=== PATIENT | male | born 1935 | race Caucasian/White ===

== ENCOUNTER 2017-10-18 17:03 | Inpatient (IN) | payer MEDICARE, OTHER ==
[~2017-10-18] VITALS: Ht 172.7 cm; Wt 70.3 kg
[2017-10-18] MEDS ORDERED: NS IV 1000 ML 1,000 ML IV ONE ×2 (17:32→19:40)
[2017-10-18 17:58] LABS: BASOPHILS % (AUTO) 0 % (0-10); EOSINOPHILS % (AUTO) 0 % (0-10); HEMATOCRIT 39 % (40-54); HEMOGLOBIN 12.7 G/DL (13.3-17.7); LYMPHOCYTES # (AUTO) 0.6 X 10^3 (1.0-4.0); LYMPHOCYTES % (AUTO) 8 % (12-44); MEAN CORPUSCULAR HEMOGLOBIN 23 PG (25-34); MEAN CORPUSCULAR HGB CONC 33 G/DL (32-36); MEAN CORPUSCULAR VOLUME 70 FL (80-99); MEAN PLATELET VOLUME 10.9 FL (7.4-10.4); MONOCYTES # (AUTO) 0.5 X 10^3 (0.0-1.0); MONOCYTES % (AUTO) 7 % (0-12); NEUTROPHILS # (AUTO) 6.7 X 10^3 (1.8-7.8); NEUTROPHILS % (AUTO) 85 % (42-75); PLATELET COUNT 322 10^3/uL (130-400); RED BLOOD COUNT 5.52 10^6/uL (4.35-5.85); RED CELL DISTRIBUTION WIDTH 16.3 % (10.0-14.5); WHITE BLOOD COUNT 7.8 10^3/uL (4.3-11.0)
[2017-10-18 18:19] LABS: INR 1.1 (0.8-1.4); PROTHROMBIN TIME PATIENT 13.8 SEC (12.2-14.7)
--- NOTE | 2017-10-18 18:22 | Diagnostic Imaging Report ---
INDICATION: Injury from a fall. EXAMINATION: Portable chest at 6:07 p.m. FINDINGS: Heart size and pulmonary vascularity are normal. Lungs are clear. There are no effusions or pneumothoraces. IMPRESSION: Negative chest. Dictated by: Dictated on workstation # [id number]
--- NOTE | 2017-10-18 18:37 | ED General ---
General Chief Complaint: General Problems/Pain Stated Complaint: FALL Nursing Triage Note: Pt brought to ED via EMS. Pt states he has been living in his garage for 18 years while his lives in the house. Pt states he was using a bucket to have a BM and when he stood up to wipe himself he lost his balance and fell forward. Pt denies LOC or hitting head. Pt denies injuries. Pt states he was too weak to get himself up from the ground and believes he was on the ground for approximately an hour when pt was found by grandson. Pt's grandson is the one that called EMS. EMS stated pt generally visits family daily and family has not seen pt in several days. That is why the grandson went to check on the pt. Pt arrived to ED covered in feces from the bottom down both legs. Nursing Sepsis Screen: No Definite Risk Source of Information: Patient, EMS Exam Limitations: No Limitations History of Present Illness Date Seen by Provider: Oct 18, 2017 Time Seen by Provider: 17:04 Initial Comments This 82-year-old gentleman presents to the emergency room via EMS from his home where he fell and was unable to get up. Patient has lived in his garage building for many years. This is an arrangement he and his have to keep peace in the household as he describes it. He was found in the garage on the floor by family when they did not hear from him today. He believes he laid on the ground for at least an hour. He has chronic problems with frequent stools and diarrhea. He was sitting on the stool and bent over to wipe himself when he fell over. He denies any injury or pain. He has generalized achiness. He was found to be febrile but he denies any symptoms of sickness such as cough, vomiting, etc. His stooling problems are at baseline. Patient presumes that he has cancer but does not want to pursue workup for it. He denies any blood in his stools. He denies any known diagnosed health problems and takes no medications. He denies excessive heat in the garage. He states there is good air circulation and he does not like air-conditioning. He has no primary care provider. Allergies and Home Medications Allergies Coded Allergies: No Known Drug Allergies (Unverified , 10/18/17) Patient Home Medication List Home Medication List Reviewed: Yes Review of Systems Review of Systems Constitutional: see HPI EENTM: no symptoms reported Respiratory: no symptoms reported Cardiovascular: see HPI (tachycardia) Gastrointestinal: see HPI (chronic diarrhea) Genitourinary: no symptoms reported Musculoskeletal: see HPI Skin: other (numerous areas of erythema from lying on the hard floor. Small skin tear on the left elbow) Psychiatric/Neurological: See HPI Hematologic/Lymphatic: No Symptoms Reported Immunological/Allergic: no symptoms reported Past Cjcidfn-Bsfibs-Qdewpa Hx Past Med/Social Hx: Reviewed and Corrections made Patient Social History Alcohol Use: Denies Use Recreational Drug Use: No 2nd Hand Smoke Exposure: No Recent Foreign Travel: No Contact w/Someone Who Travel: No Recent Infectious Disease Expo: No Recent Hopitalizations: No Physical Abuse: No Sexual Abuse: No Seasonal Allergies Seasonal Allergies: No Past Medical History Surgeries: No Respiratory: No Cardiac: No Neurological: No Genitourinary: No Gastrointestinal: Yes Chronic Diarrhea, Irritable Bowel Musculoskeletal: No Endocrine: No HEENT: No Cancer: Yes Skin Did You Recieve Any Treatments: Yes What Type of Treatment Did You: Radiation Psychosocial: No Nursing Suicide Risk Score: 0 Integumentary: No Blood Disorders: No Adverse Reaction/Blood Tranf: No Physical Exam-Suspected Sepsis Physical Exam Vital Signs Vital Signs - First Documented 10/18/17 17:05 Temp 100.3 Pulse 117 Resp 16 B/P (MAP) 134/86 (102) Pulse Ox 94 O2 Delivery Room Air Capillary Refill : Greater Than 3 Seconds Blood Pressure Mean: 102 Height, Weight, BMI Height: 5'8.00" Weight: 155lbs. oz. 70.033025vn; BMI Method:Stated General Appearance: No Apparent Distress, WD/WN, Thin, Other (skin soiled, some with feces) HEENT: PERRL/EOMI, Other (twitching and dryness of the right eye. 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 Oropharynx somewhat dry) Neck: Normal Inspection Respiratory: Lungs Clear, Normal Breath Sounds, No Accessory Muscle Use, No Respiratory Distress Cardiovascular: No Edema, No Murmur, Tachycardia Gastrointestinal: Normal Bowel Sounds, Non Tender, Soft Extremity: Normal Capillary Refill, Non Tender, No Pedal Edema, Other ( erythema over the knees) Neurologic/Psychiatric: Alert, Oriented x3, No Motor/Sensory Deficits, Normal Mood/Affect, turf manager II-XII Norm as Tested Skin: warm/dry, other (erythema over the knees, shoulders, anterior chest, and sacrum from lying on a hard floor) Focused Exam Lactate Level 10/18/17 18:13: Lactic Acid Level 2.24*H Lactic Acid Level Laboratory Tests Test 10/18/17 18:13 Lactic Acid Level 2.24 MMOL/L (0.50-2.00) *H Progress/Results/Core Measures Suspected Sepsis Recent Fever Within 48 Hours: No Infection Criteria Present: None New/Unexplained Altered Menta: No Sepsis Screen: No Definite Risk SIRS Temperature:100.3 Pulse: 117 Respiratory Rate: 16 Laboratory Tests 10/18/17 17:43: White Blood Count 7.8 Blood Pressure 134 /86 Mean: 102 10/18/17 18:13: Lactic Acid Level 2.24*H Laboratory Tests 10/18/17 17:35: INR Comment 1.1 10/18/17 17:43: Creatinine 1.10, Platelet Count 322, Total Bilirubin 0.9 Results/Orders Lab Results Laboratory Tests Test 10/18/17 17:35 10/18/17 17:43 10/18/17 18:13 10/18/17 18:59 Range/Units Prothrombin Time 13.8 12.2-14.7 SEC INR Comment 1.1 0.8-1.4 Activated Partial Thromboplast Time 32 24-35 SEC White Blood Count 7.8 4.3-11.0 10^3/uL Red Blood Count 5.52 4.35-5.85 10^6/uL Hemoglobin 12.7 L 13.3-17.7 G/DL Hematocrit 39 L 40-54 % Mean Corpuscular Volume 70 L 80-99 FL Mean Corpuscular Hemoglobin 23 L 25-34 PG Mean Corpuscular Hemoglobin Concent 33 32-36 G/DL Red Cell Distribution Width 16.3 H 10.0-14.5 % Platelet Count 322 130-400 10^3/uL Mean Platelet Volume 10.9 H 7.4-10.4 FL Neutrophils (%) (Auto) 85 H 42-75 % Lymphocytes (%) (Auto) 8 L 12-44 % Monocytes (%) (Auto) 7 0-12 % Eosinophils (%) (Auto) 0 0-10 % Basophils (%) (Auto) 0 0-10 % Neutrophils # (Auto) 6.7 1.8-7.8 X 10^3 Lymphocytes # (Auto) 0.6 L 1.0-4.0 X 10^3 Monocytes # (Auto) 0.5 0.0-1.0 X 10^3 Eosinophils # (Auto) 0.0 0.0-0.3 10^3/uL Basophils # (Auto) 0.0 0.0-0.1 10^3/uL Neutrophils % (Manual) 87 % Lymphocytes % (Manual) 5 % Monocytes % (Manual) 0 % Eosinophils % (Manual) 0 % Basophils % (Manual) 0 % Metamyelocytes % 1 % Band Neutrophils 7 % Blood Morphology Comment NORMAL Sodium Level 129 L 135-145 MMOL/L Potassium Level 4.2 3.6-5.0 MMOL/L Chloride Level 98 98-107 MMOL/L Carbon Dioxide Level 22 21-32 MMOL/L Anion Gap 9 5-14 MMOL/L Blood Urea Nitrogen 15 7-18 MG/DL Creatinine 1.10 0.60-1.30 MG/DL Estimat Glomerular Filtration Rate > 60 BUN/Creatinine Ratio 14 Glucose Level 100 70-105 MG/DL Calcium Level 9.2 8.5-10.1 MG/DL Corrected Calcium 9.4 8.5-10.1 MG/DL Magnesium Level 2.0 1.8-2.4 MG/DL Total Bilirubin 0.9 0.1-1.0 MG/DL Aspartate Amino Transf (AST/SGOT) 81 H 5-34 U/L Alanine Aminotransferase (ALT/SGPT) 38 0-55 U/L Alkaline Phosphatase 248 H 40-136 U/L Total Creatine Kinase 1118 H 30-200 U/L Total Protein 7.0 6.4-8.2 GM/DL Albumin 3.7 3.2-4.5 GM/DL TSH [place] Testing 3.93 0.35-4.94 UIU/ML Serum Alcohol < 10 <10 MG/DL Lactic Acid Level 2.24 *H 0.50-2.00 MMOL/L Urine Color YELLOW Urine Clarity SLIGHTLY CLOUDY Urine pH 5 5-9 Urine Specific [place] 1.025 H 1.016-1.022 Urine Protein 2+ H NEGATIVE Urine Glucose (UA) NEGATIVE NEGATIVE Urine Ketones 1+ H NEGATIVE Urine Nitrite NEGATIVE NEGATIVE Urine Bilirubin NEGATIVE NEGATIVE Urine Urobilinogen NORMAL NORMAL MG/DL Urine Leukocyte Esterase 1+ H NEGATIVE Urine RBC (Auto) 5+ H NEGATIVE Urine RBC 10-25 H /HPF Urine WBC 5-10 H /HPF Urine Crystals PRESENT H /LPF Urine Amorphous Sediment FEW TERI URATES H /LPF Urine Bacteria FEW H /HPF Urine Casts NONE /LPF Urine Mucus SMALL H /LPF Urine Culture Indicated YES My Orders Orders - CALEB BUCKNER MD Alcohol (10/18/17 17:14) Cbc With Automated Diff (10/18/17 17:14) Comprehensive Metabolic Panel (10/18/17 17:14) Creatine Kinase (10/18/17 17:14) Magnesium (10/18/17 17:14) Thyroid Analyzer (10/18/17 17:14) Ekg Tracing (10/18/17 17:31) Monitor-Rhythm Ecg Trace Only (10/18/17 17:31) Saline Lock/Iv-Start (10/18/17 17:32) Ns Iv 1000 Ml (Sodium Chloride 0.9%) (10/18/17 17:32) Blood Culture (10/18/17 18:01) Sputum Culture (10/18/17 18:01) Urinalysis (10/18/17 18:01) Protime With Inr (10/18/17 18:) Partial Thromboplastin Time (10/18/17 18:01) Chest 1 View, Ap/Pa Only (10/18/17 18:01) Vital Signs Adult Sepsis Patie Q15M (10/18/17 18:01) O2 (10/18/17 18:01) Remove Rings In Anticipation O (10/18/17 18:01) Lactic Acid Analyzer (10/18/17 18:01) Manual Differential (10/18/17 17:43) Acetaminophen Tablet (Tylenol Tablet) (10/18/17 18:45) Urine Culture (10/18/17 18:59) Ceftriaxone For Iv Use (Rocephin For I (10/18/17 19:30) Medications Given in ED Current Medications Medications Dose Ordered Sig/Malu Route Start Time Stop Time Status Last Admin Dose Admin Acetaminophen 1,000 mg ONCE ONCE PO 10/18/17 18:45 10/18/17 18:46 DC 10/18/17 18:45 1,000 MG Ceftriaxone Sodium 1000 mg/ Sodium Chloride 50 ml @ 100 mls/hr ONCE ONCE IV 10/18/17 19:30 10/18/17 19:59 10/18/17 19:29 100 MLS/HR Sodium Chloride 1,000 ml @ 0 mls/hr Q0M ONCE IV 10/18/17 17:32 10/18/17 17:35 DC 10/18/17 17:47 1,000 MLS/HR Vital Signs/I&O 10/18/17 17:05 Temp 100.3 Pulse 117 Resp 16 B/P (MAP) 134/86 (102) Pulse Ox 94 O2 Delivery Room Air Capillary Refill : Greater Than 3 Seconds Blood Pressure Mean: 102 Progress Note : Time: 19:45 Progress Note Patient was hydrated and given Tylenol for fever. He was found to have rhabdomyolysis and urinary tract infection. He technically meets criteria for sepsis. Septic workup was pursued. He received a total of 2 L of normal saline and IV boluses in the ER. Family eventually arrived. They state he splits his time between family in [place] and his home in [place]. Patient confirms that he does stay and sleep in his garage when he is in [place]. His grandchildren who are present in the room now wish for him to find a different living arrangements, possibly to live full-time with his daughter in [place]. I did discuss CODE STATUS with patient and the grandchildren. Patient wishes to be full code for now until he can discuss further with his other family members who are on their way. Patient was given a Boostrix tetanus booster because of a small skin tear on the left elbow. Patient had no significant injuries and did not require trauma consultation. ECG Initial ECG Impression Date: Oct 18, 2017 Initial ECG Impression Time: 17:32 Initial ECG Rate: 120 Initial ECG Rhythm: S.Tach Comment Sinus tachycardia with no ST elevation or depression. Multiple PVCs. Borderline right axis deviation. Diagnostic Imaging Diagonstic Imaging: Xray Plain Films/CT/US/NM/MRI: chest Comments Chest x-ray viewed by me and report reviewed. See report below: NAME: SANYA COATS [employer] REC#: [id number] PT STATUS: REG ER : 1935 PHYSICIAN: CALEB BUCKNER MD ADMIT DATE: 10/18/17/ER Draft Date of Exam:10/18/17 CHEST 1 VIEW, AP/PA ONLY INDICATION: Injury from a fall. EXAMINATION: Portable chest at 6:07 p.m. FINDINGS: Heart size and pulmonary vascularity are normal. Lungs are clear. There are no effusions or pneumothoraces. IMPRESSION: Negative chest. Dictated on workstation # [id number] Dict: 10/18/17 1817 Trans: 10/18/17 1822 [facility] [id number] Interpreted by: RENALDO LIU MD Departure Communication (Admissions) Time/Spoke to Admitting Phy: 19:40 Dr. Rao Impression Primary Impression: Sepsis Qualified Codes: A41.9 - Sepsis, unspecified organism Additional Impressions: Urinary tract infection Qualified Codes: N39.0 - Urinary tract infection, site not specified Rhabdomyolysis Qualified Codes: T79.6XXA - Traumatic ischemia of muscle, initial encounter Chronic diarrhea Fall on same level Qualified Codes: W18.30XA - Fall on same level, unspecified, initial encounter Skin tear of elbow without complication Qualified Codes: S51.012A - Laceration without foreign body of left elbow, initial encounter Hyponatremia Disposition: ADMITTED INPATIENT Condition: Improved Admissions Decision to Admit Reason: Admit from ER (General) Decision to Admit/Date: Oct 18, 2017 Time/Decision to Admit Time: 19:15 Departure-Patient Inst. Referrals: JAKE SIMS MD (PCP/Family) Primary Care Physician CALEB BUCKNER MD Oct 18, 2017 18:37
[2017-10-18 18:39] LABS: ALANINE AMINOTRANSFERASE 38 U/L (0-55); ALBUMIN 3.7 GM/DL (3.2-4.5); ALKALINE PHOSPHATASE 248 U/L (40-136); BILIRUBIN,TOTAL 0.9 MG/DL (0.1-1.0); BUN/CREATININE RATIO 14; CALCIUM 9.2 MG/DL (8.5-10.1); CARBON DIOXIDE 22 MMOL/L (21-32); CHLORIDE 98 MMOL/L (98-107); CREATINE KINASE 1118 U/L (30-200); GFR ESTIMATED > 60; GLUCOSE 100 MG/DL (70-105); POTASSIUM 4.2 MMOL/L (3.6-5.0); SODIUM 129 MMOL/L (135-145)
[2017-10-18 18:43] LABS: BAND NEUTROPHILS 7 %; BASOPHILS % (MANUAL) 0 %; EOSINOPHILS % (MANUAL) 0 %; LYMPHOCYTES % (MANUAL) 5 %; METAMYELOCYTES % 1 %; MONOCYTES % (MANUAL) 0 %; NEUTROPHILS % (MANUAL) 87 %; RBC MORPH NORMAL
[2017-10-18] MEDS ORDERED: ACETAMINOPHEN 500 MG TAB (TYLENOL) PO ONE (18:45)
[2017-10-18 19:01] LABS: TSH (THYROID ANALYZER) 3.93 UIU/ML (0.35-4.94)
[2017-10-18 19:07] LABS: BILIRUBIN,URINE NEGATIVE (NEGATIVE); CLARITY,URINE SLIGHTLY CLOUDY; COLOR,URINE YELLOW; GLUCOSE, URINE (UA) NEGATIVE (NEGATIVE); KETONES,URINE 1+ (NEGATIVE); LEUKOCYTE ESTERASE ,URINE 1+ (NEGATIVE); NITRITE,URINE NEGATIVE (NEGATIVE); PH,URINE 5 (5-9); PROTEIN,URINE 2+ (NEGATIVE); UROBILINOGEN,URINE NORMAL (NORMAL)
[2017-10-18 19:19] LABS: AMORPHOUS SEDIMENT,UR FEW AMOR URATES /LPF; BACTERIA,URINE FEW /HPF
[2017-10-18] MEDS ORDERED: cefTRIAXone FOR IV USE 1,000 MG in NS (IVPB) 50 ML IV ONE (19:30)
[2017-10-18] MEDS ORDERED: TETANUS,DIPTH,PERTUSS P/F (BOOSTRIX) 0.5 ML VIAL IM ONE (19:45)
[2017-10-18 21:00] VITALS: BP 134/64
[2017-10-18] MEDS ORDERED: ACETAMINOPHEN 500 MG TAB (TYLENOL) PO PRN (22:00)
[2017-10-18] MEDS ORDERED: ONDANSETRON 4 MG/2 ML (SDV) Z0FRAN IV PRN (22:00)
[2017-10-18] MEDS ORDERED: fentaNYL INJECTION 100 MCG/2 ML AMP IV PRN (22:00)
[2017-10-18 22:05] VITALS: BP 112/65
[2017-10-18] MEDS: NS IV 1000 ML 1,000 ML IV SCH (22:52)
[2017-10-18 23:05] VITALS: BP 112/65
[2017-10-19 00:25] VITALS: BP 121/70
[2017-10-19 04:30] VITALS: BP 118/65
--- OUTSIDE RECORDS SUMMARY | 2017-10-19 05:41 | XMS REPORT | Continuity of Care Document ---
Author Author [facility] Organization [facility] Address Unknown Phone Unavailable Allergies There is no data. Medications There is no data. 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 Results There is no data. Encounters ACCT No. Visit Date/Time Discharge Status Pt. Type Provider Facility Loc./Unit Complaint [id number] 05/29/2015 09:18:00 05/29/2015 23:59:59 CLS Outpatient DAV MICHAEL MD [facility] ONC [id number] 10/15/2014 09:32:00 11/19/2014 00:01:00 DIS Outpatient DAV MICHAEL MD [facility] ONC [id number] 11/26/2014 09:30:00 Document Registration
[2017-10-19 05:49] LABS: BASOPHILS % (AUTO) 1 % (0-10); EOSINOPHILS % (AUTO) 0 % (0-10); HEMATOCRIT 34 % (40-54); HEMOGLOBIN 11.1 G/DL (13.3-17.7); LYMPHOCYTES # (AUTO) 1.2 X 10^3 (1.0-4.0); LYMPHOCYTES % (AUTO) 19 % (12-44); MEAN CORPUSCULAR HEMOGLOBIN 23 PG (25-34); MEAN CORPUSCULAR HGB CONC 33 G/DL (32-36); MEAN CORPUSCULAR VOLUME 71 FL (80-99); MEAN PLATELET VOLUME 10.8 FL (7.4-10.4); MONOCYTES # (AUTO) 0.9 X 10^3 (0.0-1.0); MONOCYTES % (AUTO) 13 % (0-12); NEUTROPHILS # (AUTO) 4.5 X 10^3 (1.8-7.8); NEUTROPHILS % (AUTO) 68 % (42-75); PLATELET COUNT 260 10^3/uL (130-400); RED BLOOD COUNT 4.77 10^6/uL (4.35-5.85); WHITE BLOOD COUNT 6.6 10^3/uL (4.3-11.0)
[2017-10-19] MEDS: NS IV 1000 ML 1,000 ML IV SCH ×4 (05:52→20:01)
[2017-10-19 06:24] LABS: ALANINE AMINOTRANSFERASE 67 U/L (0-55); ALBUMIN 2.9 GM/DL (3.2-4.5); ALKALINE PHOSPHATASE 187 U/L (40-136); BILIRUBIN,TOTAL 0.6 MG/DL (0.1-1.0); BUN/CREATININE RATIO 14; CALCIUM 8.1 MG/DL (8.5-10.1); CARBON DIOXIDE 19 MMOL/L (21-32); CHLORIDE 109 MMOL/L (98-107); CREATINE KINASE 5243 U/L (30-200); CREATININE SERUM 0.83 MG/DL (0.60-1.30); GFR ESTIMATED > 60; GLUCOSE 92 MG/DL (70-105); POTASSIUM 3.8 MMOL/L (3.6-5.0); SODIUM 137 MMOL/L (135-145); TOTAL PROTEIN 5.4 GM/DL (6.4-8.2)
--- NOTE | 2017-10-19 08:19 | History & Physical-Hospitalist ---
KENNETH SCHAEFER MED STUDENT 10/19/17 0819: History of Present Illness HPI/Chief Complaint CC: Sepsis, chronic diarrhea, rhabdomyolysis HPI: This is a 82YO WM who presented to the ER after falling in his garage and was unable to get up. History was obtained via patient's daughter because the patient's hearing aids fell out when he fell yesterday. The daughter reports that the patient tends to spend time in his "man cave" in the garage, but sometimes isn't able to make it to the bathroom in the house in time. He had a BM in a bucket and fell. His grandson found him down after approx. 1 hour. Denies any loss of consciousness or blow to the head. Daughter reports that he has chronic diarrhea for a number of years. Denies having any recent illness. No current known medical conditions- patient hasn't been to a doctor in 25+ years. Labs obtained in the ER showed elevated lactic acid 2.24, hyponatremia, and rhabdomyolysis (CK 1118). CXR negative. UA was positive for UTI- ceftriaxone initiated. Source: patient, family, old records Date Seen 10/19/17 Attending Physician Kade Vaca MD PCP Kade Vaca MD Referring Physician Date of Admission Oct 18, 2017 at 19:49 Home Medications & Allergies Home Medications Reviewed patient Home Medication Reconciliation performed by pharmacy medication reconciliations a and p technician and/or nursing. Patients Allergies have been reviewed. Allergies Allergies Coded Allergies No Known Drug Allergies (Unverified10/19/17) Past Yuocrej-Owjzof-Rvpqld Hx Past Med/Social Hx: Reviewed and Corrections made Patient Social History Alcohol Use: Past History (history of alcoholism- sober for 20 years) Recreational Drug Use: No Smoking Status: Former Smoker 2nd Hand Smoke Exposure: No Physical Abuse Screen: No Sexual Abuse: No Recent Foreign Travel: No Contact w/other who traveled: No Recent Hopitalizations: No Recent Infectious Disease Expo: No Seasonal Allergies Seasonal Allergies: No Past Medical History Gastrointestinal: Chronic Diarrhea, Irritable Bowel Cancer: Skin Did You Recieve Any Treatments: Yes What Type of Treatment Did You: Radiation History of Blood Disorders: No Adverse Reaction to Blood Lira: No Family History Colon cancer G8 BROTHER Myocardial infarction 19 FATHER Physical Exam Physical Exam Vital Signs Vital Signs - First Documented 10/18/17 17:05 Temp 100.3 Pulse 117 Resp 16 B/P (MAP) 134/86 (102) Pulse Ox 94 O2 Delivery Room Air Capillary Refill : Greater Than 3 Seconds Height, Weight, BMI Height: 5'8.00" Weight: 155lbs. oz. 70.033469vz; BMI Method:Stated Results Results/Procedures Labs Laboratory Tests 10/18/17 17:43 10/19/17 05:11 10/19/17 05:33 Patient resulted labs reviewed. Assessment/Plan Admission Diagnosis Sepsis Rhabdomyolysis Chronic diarrhea UTI Plan: PT evaluation IVF Ceftriaxone Monitor labs Assessment and Plan Rhabdomyolysis Sepsis Chronic diarrhea UTI Plan: Continue abx IVF per sepsis protocol Bowel regimen Clinical Quality Measures DVT/VTE Risk/Contraindication: Risk Factor Score Per Nursin RFS Level Per Nursing on Admit: 4+=Very High TYLOR LAMBERT DO 10/19/17 1641: History of Present Illness HPI/Chief Complaint Patient reports that he "can do my own PT" and there is really nothing wrong with him. Told RN he has prostate cancer but I am unclear how he became aware of that issue considering he has not seen a doctor in 25 years. Checked meds and labs and he is currently improved in meds and fluids. Source: patient, family, old records Exam Limitations: no limitations Time Seen by Provider: 10:00 Home Medications & Allergies Home Medications Reviewed Past Khhokvc-Kgbvqk-Iswema Hx Past Med/Social Hx: Reviewed Nursing Past Med/Soc Hx, Reviewed and Corrections made Patient Social History Marrital Status: Employed/Student: retired ([employer]) Alcohol Use: Past History (history of alcoholism- sober for 20 years) Smoking Status: Former Smoker Past Medical History Gastrointestinal: Chronic Diarrhea, Irritable Bowel Cancer: Skin Family History Colon cancer G8 BROTHER Myocardial infarction 19 FATHER Hypertension Review of Systems Constitutional: no symptoms reported, dizziness, weakness EENTM: no symptoms reported Respiratory: no symptoms reported Cardiovascular: no symptoms reported Gastrointestinal: diarrhea Genitourinary: no symptoms reported Musculoskeletal: no symptoms reported Skin: no symptoms reported Psychiatric/Neurological: No Symptoms Reported All Other Systems Reviewed Negative Unless Noted: Yes Physical Exam Physical Exam General Appearance: No Apparent Distress, WD/WN, Chronically ill, Thin Eyes: Bilateral Eye Normal Inspection, Bilateral Eye PERRL HEENT: PERRL/EOMI, TMs Normal, Normal ENT Inspection, Pharynx Normal Neck: Full Range of Motion, Normal Inspection, Non Tender, Supple, Carotid Bruit Respiratory: Chest Non Tender, Lungs Clear, Normal Breath Sounds, No Accessory Muscle Use, No Respiratory Distress Cardiovascular: Regular Rate, Rhythm, No Edema, No Gallop, No JVD, No Murmur, Normal Peripheral Pulses Gastrointestinal: Normal Bowel Sounds, No Organomegaly, No Pulsatile Mass, Non Tender, Soft Back: Normal Inspection, No CVA Tenderness, No Vertebral Tenderness Extremity: Normal Capillary Refill, Normal Inspection, Normal Range of Motion, Non Tender, No Calf Tenderness, No Pedal Edema Neurologic/Psychiatric: Alert, Oriented x3, No Motor/Sensory Deficits, Normal Mood/Affect Skin: Normal Color, Warm/Dry Lymphatic: No Adenopathy Assessment/Plan Admission Diagnosis Acute Rhabdo Chronic diarrhea Admission Status: Inpatient Order (span 2 midnights) Reason for Inpatient Admission: Will take at least 2 days to clear rhabdomyolysis Assessment and Plan IVF Check labs in am Diagnosis/Problems Diagnosis/Problems (1) Sepsis Status: Acute Qualifiers: Sepsis type: sepsis due to unspecified organism Qualified Codes: A41.9 - Sepsis, unspecified organism (2) Fall on same level Status: Acute Qualifiers: Encounter type: initial encounter Qualified Codes: W18.30XA - Fall on same level, unspecified, initial encounter (3) Rhabdomyolysis Status: Acute Qualifiers: Rhabdomyolysis type: traumatic Encounter type: initial encounter Qualified Codes: T79.6XXA - Traumatic ischemia of muscle, initial encounter (4) Hyponatremia Status: Acute (5) Urinary tract infection Status: Acute Qualifiers: Urinary tract infection type: site unspecified Hematuria presence: without hematuria Qualified Codes: N39.0 - Urinary tract infection, site not specified KENNETH SCHAEFER STUDENT Oct 19, 2017 08:19 TYLOR LAMBERT DO Oct 19, 2017 16:41
[2017-10-19 08:48] VITALS: BP 137/72
[2017-10-19] MEDS ORDERED: LOPERAMIDE 2 MG (IMODIUM) CAP PO PRN (11:30)
[2017-10-19 12:00] VITALS: BP 144/79
--- NOTE | 2017-10-19 14:19 | Physical Therapy Evaluation ---
PT Evaluation-General Medical Diagnosis Admission Date Oct 18, 2017 at 19:49 Medical Diagnosis: sepsis/UTI/rhabdo Onset Date: Oct 18, 2017 Therapy Diagnosis Therapy Diagnosis: generalized weakness/debility Height/Weight Height (Feet): 5 Height (Inches): 8.00 Weight (Pounds): 155 Precautions Precautions/Isolations: Fall Prevention, Standard Precautions Weight Bear Status Right Lower Extremity: Right Full Weight Bearing Left Lower Extremity: Left Full Weight Bearing Referral Physician: Maira Reason for Referral: Evaluation/Treatment Medical History Additional Medical History has no seen a physician in over 25 yrs Current History EMS secondary to fall (patient lives in a garage and has BM's in a bucket. Fell bending over to wipe after a BM.) Reviewed History: Yes Social History Current Living Status: Alone Prior/Core FIM Prior Level of Function Functional [place] Measure 0=Not Assessed/NA 4=Minimal Assistance 1=Total Assistance 5=Supervision or Setup 2=Maximal Assistance 6=Modified [place] 3=Moderate Assistance 7=Complete [place] Bed Mobility: 6 Transfers (B,C,W/C) (FIM): 6 Gait: 6 patient reports he has a cane and 4WW PT Evaluation-Current Subjective Patient agrees to PT. Pain Numeric Pain Scale: 0-No Pain Location: No Pain Reported Objective Patient Orientation: Normal For Age Problem Solving: Fair Attachments: IV ROM/Strength ROM Lower Extremities bilateral LE WNL Strength Lower Extremities 4-/5 grossly bilaterally Integumentary/Posture Integumentary refer to nursing notes Bowel Incontinence: No Bladder Incontinence: No Posture WFL Neuromuscular (Tone, Coordination, Reflexes) diminished coordination/ataxic Sensory Vision: Wears Glasses Hearing: Impaired Sensation Right Lower Extremit: Intact Sensation Left Lower Extremity: Intact Transfers Functional [place] Measure 0=Not Assessed/NA 4=Minimal Assistance 1=Total Assistance 5=Supervision or Setup 2=Maximal Assistance 6=Modified [place] 3=Moderate Assistance 7=Complete [place] Transfers (B, C, W/C) (FIM): 5 Scootin Rollin Supine to/from Sit: 5 Sit to/from Stand: 5 Gait Mode of Locomotion: Walk Anticipated Mode of Locomotion: Walk Gait (FIM): 5 Distance (FIM): 3=150 ft Distance: 675' Gait Level of Assist: 5 Gait Assistive Device: FWW Comments/Gait Description slightly unsteady with self correction Balance Sitting Static: Normal Sitting Dynamic: Normal Standing Static: Fair Standing Dynamic: Fair Assessment/Needs 82 y.o. male, will benefit from skilled PT to address functional strength and mobility to improve current LOF and to safely dismiss to daughter's home for continued care. From a PT standpoint, patient would benefit from outpatient PT , upon dismissal, to continue addressing functional mobility/strength. Rehab Potential: Fair PT Short Term Goals Short Term Goals Time Frame: Oct 25, 2017 Transfers (B,C,W/C) (FIM): 6 Gait (FIM): 6 Distance (FIM): 3=150 ft Gait Level of Assist: 6 Gait Assistive Device: FWW PT Plan Treatment/Plan Treatment Plan: Continue Plan of Care Treatment Plan: Education, Functional Activity Jorge Luis, Functional Strength, Gait , Safety, Therapeutic Exercise, Transfers Treatment Duration: Oct 25, 2017 Frequency: 6 times per week Estimated Hrs Per Day: .25 hour per day Patient and/or Family Agrees t: Yes Safety Risks/Education Patient Education: Safety Issues Teaching Recipient: Patient Teaching Methods: Discussion Response to Teaching: Verbalize Understanding Discharge Recommendations Therapy D/C Recommendations: Home w/ Family Support, Physical Therapy Outpatient Equpiment Recommendations-D/C: Front Wheeled Walker Time/GCodes Time In: 1250 Time Out: 1325 Total Billed Treatment Time: 35 Total Billed Treatment 1 visit EVModC 20 min FA 15 min G Codes Necessary: CATY Spencer PT Oct 19, 2017 14:19
[2017-10-19 16:20] VITALS: BP 143/80
[2017-10-19 20:20] VITALS: BP 129/70
[2017-10-19] MEDS ORDERED: cefTRIAXone 1 GM/NS 50 ML IVPB IV SCH ×2 (22:00)
[2017-10-20] VITALS: BP 135/69
[2017-10-20] MEDS: NS IV 1000 ML 1,000 ML IV SCH (03:20)
[2017-10-20 04:24] VITALS: BP 122/64
[2017-10-20 06:06] LABS: BASOPHILS % (AUTO) 0 % (0-10); EOSINOPHILS # (AUTO) 0.2 10^3/uL (0.0-0.3); EOSINOPHILS % (AUTO) 2 % (0-10); HEMATOCRIT 34 % (40-54); HEMOGLOBIN 10.7 G/DL (13.3-17.7); LYMPHOCYTES # (AUTO) 1.5 X 10^3 (1.0-4.0); LYMPHOCYTES % (AUTO) 20 % (12-44); MEAN CORPUSCULAR HEMOGLOBIN 23 PG (25-34); MEAN CORPUSCULAR HGB CONC 32 G/DL (32-36); MEAN CORPUSCULAR VOLUME 72 FL (80-99); MEAN PLATELET VOLUME 10.7 FL (7.4-10.4); MONOCYTES % (AUTO) 13 % (0-12); NEUTROPHILS % (AUTO) 65 % (42-75); PLATELET COUNT 268 10^3/uL (130-400); RED BLOOD COUNT 4.71 10^6/uL (4.35-5.85); RED CELL DISTRIBUTION WIDTH 16.5 % (10.0-14.5); WHITE BLOOD COUNT 7.7 10^3/uL (4.3-11.0)
[2017-10-20 06:27] LABS: ALANINE AMINOTRANSFERASE 83 U/L (0-55); ALBUMIN 2.7 GM/DL (3.2-4.5); ALKALINE PHOSPHATASE 168 U/L (40-136); BILIRUBIN,TOTAL 0.4 MG/DL (0.1-1.0); BUN/CREATININE RATIO 10; CALCIUM 7.9 MG/DL (8.5-10.1); CARBON DIOXIDE 19 MMOL/L (21-32); CHLORIDE 110 MMOL/L (98-107); CREATINE KINASE 3405 U/L (30-200); CREATININE SERUM 0.81 MG/DL (0.60-1.30); GFR ESTIMATED > 60; GLUCOSE 82 MG/DL (70-105); POTASSIUM 3.4 MMOL/L (3.6-5.0); SODIUM 136 MMOL/L (135-145); TOTAL PROTEIN 5.3 GM/DL (6.4-8.2)
--- NOTE | 2017-10-20 08:10 | Progress Note-Hospitalist ---
KENNETH SCHAEFER MED STUDENT 10/20/17 0810: Subjective HPI/CC On Admission Date Seen by Provider: Oct 20, 2017 Time Seen by Provider: 07:40 Patient reports that he "can do my own PT" and there is really nothing wrong with him. Told RN he has prostate cancer but I am unclear how he became aware of that issue considering he has not seen a doctor in 25 years. Checked meds and labs and he is currently improved in meds and fluids. Subjective/Events-last exam No acute events overnight; vitals stable Pt awake and anxious to get home Denies any pain +BM, urinating okay CK improving - 3,405 Pt declined PT yesterday, but has been ambulating Reviewed meds/labs Focused Exam Lactate Level 10/18/17 18:13: Lactic Acid Level 2.24*H 10/18/17 20:35: Lactic Acid Level 1.02 Objective Exam Vital Signs Vital Signs Date Time Temp Pulse Resp B/P (MAP) Pulse Ox O2 Delivery O2 Flow Rate FiO2 10/20/17 04:24 98.3 71 16 122/64 (83) 94 Room Air Capillary Refill : Greater Than 3 Seconds General Appearance: No Apparent Distress Respiratory: Lungs Clear Cardiovascular: Regular Rate, Rhythm Neurologic/Psychiatric: Alert, Oriented x3 Results/Procedures Lab Laboratory Tests 10/20/17 05:15 Patient resulted labs reviewed. Assessment/Plan Assessment and Plan Assess & Plan/Chief Complaint Rhabdomyolysis Chronic diarrhea Plan: D/C home with daughter Diagnosis/Problems Diagnosis/Problems (1) Rhabdomyolysis Status: Acute Qualifiers: Rhabdomyolysis type: traumatic Encounter type: initial encounter Qualified Codes: T79.6XXA - Traumatic ischemia of muscle, initial encounter (2) Chronic diarrhea Status: Acute Clinical Quality Measures DVT/VTE Risk/Contraindication: Risk Factor Score Per Nursin RFS Level Per Nursing on Admit: 4+=Very High TYLOR LAMBERT DO 10/20/17 0954: Subjective Subjective/Events-last exam See DC note Objective Exam General Appearance: No Apparent Distress, WD/WN, Chronically ill, Thin Respiratory: Chest Non Tender, Lungs Clear, Normal Breath Sounds, No Accessory Muscle Use, No Respiratory Distress Assessment/Plan Assessment and Plan Assess & Plan/Chief Complaint See DC note KENNETH SCHAEFER MED STUDENT Oct 20, 2017 08:10 TYLOR LAMBERT DO Oct 20, 2017 09:54
[2017-10-20 08:20] VITALS: BP 133/69
--- NOTE | 2017-10-20 09:57 | Discharge Summary-Hospitalist ---
Diagnosis/Chief Complaint Date of Admission Oct 18, 2017 at 19:49 Date of Discharge Discharge Date: Oct 20, 2017 Admission Diagnosis Acute Rhabdo Chronic diarrhea Discharge Diagnosis (1) Rhabdomyolysis Status: Acute (2) Chronic diarrhea Status: Acute Discharge Summary Discharge Physical Exam Allergies: Coded Allergies: No Known Drug Allergies (Unverified , 10/19/17) Vitals & I&Os Vital Signs Date Time Temp Pulse Resp B/P (MAP) Pulse Ox O2 Delivery O2 Flow Rate FiO2 10/20/17 08:20 98.3 76 20 133/69 (90) 93 Room Air General Appearance: No Apparent Distress, WD/WN, Thin Respiratory: Chest Non Tender, Lungs Clear, Normal Breath Sounds, No Accessory Muscle Use, No Respiratory Distress Cardiovascular: Regular Rate, Rhythm, No Edema, No Gallop, No JVD, No Murmur, Normal Peripheral Pulses Neurologic/Psychiatric: Alert, Oriented x3, No Motor/Sensory Deficits, Normal Mood/Affect Hospital Course Hospital course: Patient had a standard hospital course he was found down at home and was brought in and found to have acute rhabdomyolysis and dehydration. He had not seen a physician for 25 years. He has a history of chronic diarrhea and has sought no medical care for that condition. Family became involved and patient will be moved to [place] and establish with a primary care provider and manage other medical issues that he has. Patient was able to be walking around and resuming normal activity and will be discharged home and he will establish with primary care provider [place] is self-refer to physical therapy. He will need repeat labs and liver enzyme check within 1 week. Labs (last 24 hrs) Laboratory Tests 10/20/17 05:15: White Blood Count 7.7, Red Blood Count 4.71, Hemoglobin 10.7L, Hematocrit 34L, Mean Corpuscular Volume 72L, Mean Corpuscular Hemoglobin 23L, Mean Corpuscular Hemoglobin Concent 32, Red Cell Distribution Width 16.5H, Platelet Count 268, Mean Platelet Volume 10.7H, Neutrophils (%) (Auto) 65, Lymphocytes (%) (Auto) 20 , Monocytes (%) (Auto) 13H, Eosinophils (%) (Auto) 2, Basophils (%) (Auto) 0, Neutrophils # (Auto) 5.0, Lymphocytes # (Auto) 1.5, Monocytes # (Auto) 1.0, Eosinophils # (Auto) 0.2, Basophils # (Auto) 0.0, Sodium Level 136, Potassium Level 3.4L, Chloride Level 110H, Carbon Dioxide Level 19L, Anion Gap 7, Blood Urea Nitrogen 8, Creatinine 0.81, Estimat Glomerular Filtration Rate > 60, BUN/ Creatinine Ratio 10, Glucose Level 82, Calcium Level 7.9L, Corrected Calcium 8.9 , Total Bilirubin 0.4, Aspartate Amino Transf (AST/SGOT) 255H, Alanine Aminotransferase (ALT/SGPT) 83H, Alkaline Phosphatase 168H, Total Creatine Kinase 3405#H, Total Protein 5.3L, Albumin 2.7L Microbiology 10/18/17 Blood Culture - Preliminary, Resulted No growth 10/18/17 Urine Culture - Final, Complete NO GROWTH Patient resulted labs reviewed. Pending Labs Laboratory Tests 10/20/17 05:15: White Blood Count 7.7, Red Blood Count 4.71, Hemoglobin 10.7, Hematocrit 34, Mean Corpuscular Volume 72, Mean Corpuscular Hemoglobin 23, Mean Corpuscular Hemoglobin Concent 32, Red Cell Distribution Width 16.5, Platelet Count 268, Mean Platelet Volume 10.7, Neutrophils (%) (Auto) 65, Lymphocytes (%) (Auto) 20 , Monocytes (%) (Auto) 13, Eosinophils (%) (Auto) 2, Basophils (%) (Auto) 0, Neutrophils # (Auto) 5.0, Lymphocytes # (Auto) 1.5, Monocytes # (Auto) 1.0, Eosinophils # (Auto) 0.2, Basophils # (Auto) 0.0, Sodium Level 136, Potassium Level 3.4, Chloride Level 110, Carbon Dioxide Level 19, Anion Gap 7, Blood Urea Nitrogen 8, Creatinine 0.81, Estimat Glomerular Filtration Rate > 60, BUN/ Creatinine Ratio 10, Glucose Level 82, Calcium Level 7.9, Corrected Calcium 8.9 , Total Bilirubin 0.4, Aspartate Amino Transf (AST/SGOT) 255, Alanine Aminotransferase (ALT/SGPT) 83, Alkaline Phosphatase 168, Total Creatine Kinase 3405, Total Protein 5.3, Albumin 2.7 Discussion & Recommendations Discharge Planning: <30 minutes discharge planning Discharge Home Medications: Active Scripts Active No Active Prescriptions or Reported Medications Instructions to patient/family Please see electronic discharge instructions given to patient. Clinical Quality Measures DVT/VTE Risk/Contraindication: Risk Factor Score Per Nursin RFS Level Per Nursing on Admit: 4+=Very High Problem Qualifiers (1) Rhabdomyolysis: Rhabdomyolysis type: traumatic Encounter type: initial encounter Qualified Codes: T79.6XXA - Traumatic ischemia of muscle, initial encounter TYLOR LAMBERT DO Oct 20, 2017 09:56
--- NOTE | 2017-10-24 10:09 | Physician Query Clarification ---
PQ-Uncertain Diagnosis Admission/Discharge Admission Date: Oct 18, 2017 at 19:49 Discharge Date: Oct 20, 2017 at 13:24 The medical record reflects the following clinical scenario: History/Risk Factors: Admission diagnosis of Sepsis,rhabdomyolysis,UTI and chronic diarrhea. Clinical Findings:WBC 7.8, Band neutrophils 7, Temp 100.3, pulse 117, resp 16, BP 134/86, Lactic acid 2.24, blood culture neg. Treatment:IV Ceftriaxone, IV fluids. Question: Is Sepsis a clinically valid diagnosis? Sepsis was documented in the ED and H&P, but not in the discharge diagnosis of discharge summary. Please clarify. Please document a response below. PHYSICIAN RESPONSE Diagnosis clinically valid: Yes, Conditon resolved In responding to this query, please exercise your independent professional judgment. The purpose of this communication is to more accurately reflect the complexity of your patients condition. The fact that a question is asked does not imply that any particular answer is desired or expected. Thank you for your timely response to this clarification. Requestors name: Stacy Simmons [facility] Phone # ext [phone] or [phone]. THIS PHYSICIAN QUERY FORM IS A PERMANENT PART OF THE MEDICAL RECORD STACY SIMMONS Oct 24, 2017 10:09 TYLOR LAMBERT DO Oct 24, 2017 15:48
--- NOTE | 2017-10-24 10:18 | Physician Query Clarification ---
PQ-Uncertain Diagnosis Admission/Discharge Admission Date: Oct 18, 2017 at 19:49 Discharge Date: Oct 20, 2017 at 13:24 The medical record reflects the following clinical scenario: History/Risk Factors: Admission diagnosis of sepsis, UTI, Rhabdomyolysis, chronic diarrhea. Clinical Findings: Urine specific gravity 102.5, urine protein 2+, Urine ketones 1+, Urine RBC 10- 25, Urine WBC 5-10, Urine bacteria few,Urine culture indicated-final no growth. Treatment: IV Ceftriaxone. Question: Is UTI a clinically valid diagnosis? UTI was documented in the ED and H&P, but not in the discharge diagnosis of the discharge summary. Please clarify. Please document a response below. PHYSICIAN RESPONSE Diagnosis clinically valid: No, conditon ruled out In responding to this query, please exercise your independent professional judgment. The purpose of this communication is to more accurately reflect the complexity of your patients condition. The fact that a question is asked does not imply that any particular answer is desired or expected. Thank you for your timely response to this clarification. Requestors name: Stacy Simmons [facility], [place] Phone # [phone] or [phone] THIS PHYSICIAN QUERY FORM IS A PERMANENT PART OF THE MEDICAL RECORD STACY SIMMONS Oct 24, 2017 10:18 TYLOR LAMBERT DO Oct 24, 2017 15:49
--- NOTE | 2017-10-30 09:26 | Physician Query Clarification ---
PQ-Link Manifestation-Etiology Admission/Discharge Admission Date: Oct 18, 2017 at 19:49 Discharge Date: Oct 20, 2017 at 13:24 The medical record reflects the following clinical scenario: History/Risk Factors: Acute traumatic rhabdomyolysis Dehydration UTI ruled out Clinical Findings:WBC 7.8, Bands 7, T 100.3, pulse 117, resp 16, BP 134/86, lactic acid 2.24, blood culture-no growth and urine culture- no growth. Total Creatine Kinase-1118 ib 10/18, 5243 on 10/19 and 3405 on 10/20. Treatment: IV fluids, lab monitoring. IV Ceftriaxone. Question: For clarification? Please document a response below In responding to this query, please exercise your independent professional judgment. The purpose of this communication is to more accurately reflect the complexity of your patients condition. The fact that a question is asked does not imply that any particular answer is desired or expected. Thank you for your timely response to this clarification. Requestors name: [ ] Phone # [ ] THIS PHYSICIAN QUERY FORM IS A PERMANENT PART OF THE MEDICAL RECORD JENNIFER SIMMONS Oct 30, 2017 09:26
--- NOTE | 2017-10-30 09:39 | Physician Query Clarification ---
PQ-Further Specificity Admission/Discharge Admission Date: Oct 18, 2017 at 19:49 Discharge Date: Oct 20, 2017 at 13:24 The medical record reflects the following clinical scenario: History/Risk Factors: Sepsis Acute traumatic rhabdomyolysis Dehydration UTI ruled out. Clinical Findings:WBC 7.8, Bands 7, T 100.3, pulse 117, resp 16, BP 134/86, lactic acid 2.24, blood culture-no growth, urine culture-no growth. Total Creatine Kinase- 1118- 10/18, 5243- 10/19 and 3405-10/20. Treatment: IV Ceftriaxone, IV fluids and lab monitoring. Question: Can you further specify Etiology of Sepsis since the UTI was ruled out per the clinical indicators above? Please document below. 1. Acute traumatic rhabdomyolysis. 2. Infection of unknown source. 3. Other, with explanation of the clinical findings. 4. Clinically undetermined, no explanation for the clinical findings. PHYSICIAN RESPONSE Can you specify per above: Clinically undetermined In responding to this query, please exercise your independent professional judgment. The purpose of this communication is to more accurately reflect the complexity of your patients condition. The fact that a question is asked does not imply that any particular answer is desired or expected. Thank you for your timely response to this clarification. Requestors name: Stacy Simmons [facility], [facility] Phone # ext [phone] or [phone] THIS PHYSICIAN QUERY FORM IS A PERMANENT PART OF THE MEDICAL RECORD STACY SIMMONS Oct 30, 2017 09:39 TYLOR LAMBERT DO Oct 31, 2017 07:00
== END 2017-10-20 13:24 | disposition home or self-care (01) | DRG 872 ==
LOC: EDUNIT# 17:03 → ER 17:04 → 4TH 19:49
PROVIDERS: ADMIT Internal Medicine; ATTEND Internal Medicine
DX: A41.9 Sepsis, unspecified organism (principal); T79.6XXA Traumatic ischemia of muscle, initial encounter; E87.1 Hypo-osmolality and hyponatremia; S51.012A Laceration without foreign body of left elbow, initial encounter; K58.0 Irritable bowel syndrome with diarrhea; E86.0 Dehydration; R00.0 Tachycardia, unspecified; I49.3 Ventricular premature depolarization; F10.21 Alcohol dependence, in remission; W18.30XA Fall on same level, unspecified, initial encounter; Y92.094 Garage of other non-institutional residence as the place of occurrence of the external cause; Z87.891 Personal history of nicotine dependence; Z85.828 Personal history of other malignant neoplasm of skin; Z92.3 Personal history of irradiation; Z97.4 Presence of external hearing-aid; Z23 Encounter for immunization
CPT/HCPCS: 36415; 71045; 80053; 80320; 81000; 82550; 83605; 83735; 84443; 85007; 85025; 85027; 85610; 85730; 87040; 87088; 90471; 90715; 93005; 93041; 96361; 96365

== ENCOUNTER 2018-01-04 04:59 | Emergency (ER) | payer MEDICARE, OTHER ==
[~2018-01-04] VITALS: Ht 172.7 cm; Wt 72.6 kg
--- OUTSIDE RECORDS SUMMARY | 2018-01-04 05:06 | XMS REPORT | Continuity of Care Document ---
Author Author [facility] Organization [facility] Address Unknown Phone Unavailable Allergies Active Description Code Type Severity Reaction Onset Reported/Identified Relationship to Patient Clinical Status Yes No Known Drug Allergies [id number] Drug Allergy Unknown N/A 10/19/2017 Medications There is no data. 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 CARCINOMA OF SKIN OF NOSE 10/19/2017 JAKE SIMS MD Ot A41.9 SEPSIS, UNSPECIFIED ORGANISM 10/19/2017 JAKE SIMS MD Ot E87.1 HYPO-OSMOLALITY AND HYPONATREMIA 10/19/2017 JAKE SIMS MD Ot F10.21 ALCOHOL DEPENDENCE, IN REMISSION 10/19/2017 JAKE SIMS MD Ot I49.3 VENTRICULAR PREMATURE DEPOLARIZATION 10/19/2017 JAKE SIMS MD Ot K58.0 IRRITABLE BOWEL SYNDROME WITH DIARRHEA 10/19/2017 JAKE SIMS MD Ot N39.0 URINARY TRACT INFECTION, SITE NOT SPECIF 10/19/2017 JAKE SIMS MD Ot R00.0 TACHYCARDIA, UNSPECIFIED 10/19/2017 JAKE SIMS MD Ot S51.012A LACERATION WITHOUT FOREIGN BODY OF LEFT 10/19/2017 JAKE SIMS MD Ot T79.6XXA TRAUMATIC ISCHEMIA OF MUSCLE, INITIAL EN 10/19/2017 JAKE SIMS MD Ot W18.30XA FALL ON SAME LEVEL, UNSPECIFIED, INITIAL 10/19/2017 JAKE SIMS MD Ot Y92.094 GARAGE OF NON-INSTITUTIONAL RESIDENCE 10/19/2017 JAKE SIMS MD Ot Z85.828 PERSONAL HISTORY OF OTHER MALIGNANT NEOP 10/19/2017 JAKE SIMS MD Ot Z87.891 PERSONAL HISTORY OF NICOTINE DEPENDENCE 10/19/2017 JAKE SIMS MD Ot Z92.3 PERSONAL HISTORY OF IRRADIATION 10/20/2017 JAKE SIMS MD Ot A41.9 SEPSIS, UNSPECIFIED ORGANISM 10/20/2017 JAKE SIMS MD Ot E86.0 DEHYDRATION 10/20/2017 JAKE SIMS MD Ot E87.1 HYPO-OSMOLALITY AND HYPONATREMIA 10/20/2017 JAKE SIMS MD Ot F10.21 ALCOHOL DEPENDENCE, IN REMISSION 10/20/2017 JAKE SIMS MD Ot I49.3 VENTRICULAR PREMATURE DEPOLARIZATION 10/20/2017 JAKE SIMS MD Ot K58.0 IRRITABLE BOWEL SYNDROME WITH DIARRHEA 10/20/2017 JAKE SIMS MD Ot N39.0 URINARY TRACT INFECTION, SITE NOT SPECIF 10/20/2017 JAKE SIMS MD Ot R00.0 TACHYCARDIA, UNSPECIFIED 10/20/2017 JAKE SIMS MD Ot S51.012A LACERATION WITHOUT FOREIGN BODY OF LEFT 10/20/2017 JAKE SIMS MD Ot T79.6XXA TRAUMATIC ISCHEMIA OF MUSCLE, INITIAL EN 10/20/2017 JAKE SIMS MD Ot W18.30XA FALL ON SAME LEVEL, UNSPECIFIED, INITIAL 10/20/2017 JAKE SIMS MD Ot Y92.094 GARAGE OF NON-INSTITUTIONAL RESIDENCE 10/20/2017 JAKE SIMS MD Ot Z23 ENCOUNTER FOR IMMUNIZATION 10/20/2017 JAKE SIMS MD Ot Z85.828 PERSONAL HISTORY OF OTHER MALIGNANT NEOP 10/20/2017 JAKE SIMS MD Ot Z87.891 PERSONAL HISTORY OF NICOTINE DEPENDENCE 10/20/2017 JAKE SIMS MD Ot Z92.3 PERSONAL HISTORY OF IRRADIATION 10/20/2017 JAKE SIMS MD Ot Z97.4 PRESENCE OF EXTERNAL HEARING-AID Procedures There is no data. Results Test Result Range Bacterial blood culture - 10/18/17 18:13 Bacterial blood culture NG NRG Bacterial blood culture - 10/18/17 18:40 Bacterial blood culture NG NRG Bacterial urine culture - 10/18/17 18:59 Bacterial urine culture NG NR Complete blood count (CBC) with automated white blood cell (WBC) differential - 10/19/17 05:11 Blood leukocytes automated count (number/volume) 6.6 10*3/uL 4.3-11.0 Blood erythrocytes automated count (number/volume) 4.77 10*6/uL 4.35-5.85 Venous blood hemoglobin measurement (mass/volume) 11.1 g/dL 13.3-17.7 Blood hematocrit (volume fraction) 34 % 40-54 Automated erythrocyte mean corpuscular volume 71 [foz_us] 80-99 Automated erythrocyte mean corpuscular hemoglobin (mass per erythrocyte) 23 pg 25-34 Automated erythrocyte mean corpuscular hemoglobin concentration measurement ( mass/volume) 33 g/dL 32-36 Automated erythrocyte distribution width ratio 16.0 % 10.0-14.5 Automated blood platelet count (count/volume) 260 10*3/uL 130-400 Automated blood platelet mean volume measurement 10.8 [foz_us] 7.4-10.4 Automated blood neutrophils/100 leukocytes 68 % 42-75 Automated blood lymphocytes/100 leukocytes 19 % 12-44 Blood monocytes/100 leukocytes 13 % 0-12 Automated blood eosinophils/100 leukocytes 0 % 0-10 Automated blood basophils/100 leukocytes 1 % 0-10 Blood neutrophils automated count (number/volume) 4.5 10*3 1.8-7.8 Blood lymphocytes automated count (number/volume) 1.2 10*3 1.0-4.0 Blood monocytes automated count (number/volume) 0.9 10*3 0.0-1.0 Automated eosinophil count 0.0 10*3/uL 0.0-0.3 Automated blood basophil count (count/volume) 0.0 10*3/uL 0.0-0.1 Comprehensive metabolic panel - 10/19/17 05:33 Serum or plasma sodium measurement (moles/volume) 137 mmol/L 135-145 Serum or plasma potassium measurement (moles/volume) 3.8 mmol/L 3.6-5.0 Serum or plasma chloride measurement (moles/volume) 109 mmol/L 98-107 Carbon dioxide 19 mmol/L 21-32 Serum or plasma anion gap determination (moles/volume) 9 mmol/L 5-14 Serum or plasma urea nitrogen measurement (mass/volume) 12 mg/dL 7-18 Serum or plasma creatinine measurement (mass/volume) 0.83 mg/dL 0.60-1.30 Serum or plasma urea nitrogen/creatinine mass ratio 14 NRG Serum or plasma creatinine measurement with calculation of estimated glomerular filtration rate > NRG Serum or plasma glucose measurement (mass/volume) 92 mg/dL 70-105 Serum or plasma calcium measurement (mass/volume) 8.1 mg/dL 8.5-10.1 Serum or plasma total bilirubin measurement (mass/volume) 0.6 mg/dL 0.1-1.0 Serum or plasma alkaline phosphatase measurement (enzymatic activity/volume) 187 U/L 40-136 Serum or plasma aspartate aminotransferase measurement (enzymatic activity/ volume) 254 U/L 5-34 Serum or plasma alanine aminotransferase measurement (enzymatic activity/volume ) 67 U/L 0-55 Serum or plasma protein measurement (mass/volume) 5.4 g/dL 6.4-8.2 Serum or plasma albumin measurement (mass/volume) 2.9 g/dL 3.2-4.5 CALCIUM CORRECTED 9.0 mg/dL 8.5-10.1 Serum or plasma creatine kinase measurement (enzymatic activity/volume) - 10/19 05:33 Serum or plasma creatine kinase measurement (enzymatic activity/volume) 5243 U/L 30-200 Complete blood count (CBC) with automated white blood cell (WBC) differential - 10/20/17 05:15 Blood leukocytes automated count (number/volume) 7.7 10*3/uL 4.3-11.0 Blood erythrocytes automated count (number/volume) 4.71 10*6/uL 4.35-5.85 Venous blood hemoglobin measurement (mass/volume) 10.7 g/dL 13.3-17.7 Blood hematocrit (volume fraction) 34 % 40-54 Automated erythrocyte mean corpuscular volume 72 [foz_us] 80-99 Automated erythrocyte mean corpuscular hemoglobin (mass per erythrocyte) 23 pg 25-34 Automated erythrocyte mean corpuscular hemoglobin concentration measurement ( mass/volume) 32 g/dL 32-36 Automated erythrocyte distribution width ratio 16.5 % 10.0-14.5 Automated blood platelet count (count/volume) 268 10*3/uL 130-400 Automated blood platelet mean volume measurement 10.7 [foz_us] 7.4-10.4 Automated blood neutrophils/100 leukocytes 65 % 42-75 Automated blood lymphocytes/100 leukocytes 20 % 12-44 Blood monocytes/100 leukocytes 13 % 0-12 Automated blood eosinophils/100 leukocytes 2 % 0-10 Automated blood basophils/100 leukocytes 0 % 0-10 Blood neutrophils automated count (number/volume) 5.0 10*3 1.8-7.8 Blood lymphocytes automated count (number/volume) 1.5 10*3 1.0-4.0 Blood monocytes automated count (number/volume) 1.0 10*3 0.0-1.0 Automated eosinophil count 0.2 10*3/uL 0.0-0.3 Automated blood basophil count (count/volume) 0.0 10*3/uL 0.0-0.1 Comprehensive metabolic panel - 10/20/17 05:15 Serum or plasma sodium measurement (moles/volume) 136 mmol/L 135-145 Serum or plasma potassium measurement (moles/volume) 3.4 mmol/L 3.6-5.0 Serum or plasma chloride measurement (moles/volume) 110 mmol/L 98-107 Carbon dioxide 19 mmol/L 21-32 Serum or plasma anion gap determination (moles/volume) 7 mmol/L 5-14 Serum or plasma urea nitrogen measurement (mass/volume) 8 mg/dL 7-18 Serum or plasma creatinine measurement (mass/volume) 0.81 mg/dL 0.60-1.30 Serum or plasma urea nitrogen/creatinine mass ratio 10 NRG Serum or plasma creatinine measurement with calculation of estimated glomerular filtration rate > NRG Serum or plasma glucose measurement (mass/volume) 82 mg/dL 70-105 Serum or plasma calcium measurement (mass/volume) 7.9 mg/dL 8.5-10.1 Serum or plasma total bilirubin measurement (mass/volume) 0.4 mg/dL 0.1-1.0 Serum or plasma alkaline phosphatase measurement (enzymatic activity/volume) 168 U/L 40-136 Serum or plasma aspartate aminotransferase measurement (enzymatic activity/ volume) 255 U/L 5-34 Serum or plasma alanine aminotransferase measurement (enzymatic activity/volume ) 83 U/L 0-55 Serum or plasma protein measurement (mass/volume) 5.3 g/dL 6.4-8.2 Serum or plasma albumin measurement (mass/volume) 2.7 g/dL 3.2-4.5 CALCIUM CORRECTED 8.9 mg/dL 8.5-10.1 Serum or plasma creatine kinase measurement (enzymatic activity/volume) - 10/20 05:15 Serum or plasma creatine kinase measurement (enzymatic activity/volume) 3405 U/L 30-200 Encounters ACCT No. Visit Date/Time Discharge Status Pt. Type Provider Facility Loc./Unit Complaint [id number] 10/18/2017 19:49:00 10/20/2017 13:24:00 DIS Inpatient LEVI HOLMAN, JAKE Garg [facility] 4TH SEPSIS, UTI, RHAHDO, CHRONIC DIARRHEA [id number] 05/29/2015 09:18:00 05/29/2015 23:59:59 CLS Outpatient DAV MICHAEL MD [facility] ONC [id number] 10/15/2014 09:32:00 11/19/2014 00:01:00 DIS Outpatient DAV MICHAEL MD [facility] ONC [id number] 11/26/2014 09:30:00 Document Registration
[2018-01-04] MEDS ORDERED: LIDOCAINE 1% INJ 20 ML 20 ML VIAL INJ ONE (06:15)
--- NOTE | 2018-01-04 06:59 | ED Integumentary General ---
General Chief Complaint: Skin/Wound Problems Stated Complaint: FECAL MATTER IN INCISTION Nursing Triage Note: PT TO ROOM #6 [facility] FROM [facility]. FACILITY REPORTS PT HAS BEEN PULLING OFF COLOSTOMY BAG RESULTING IN FECAL MATTER GETTING IN INCISION SITE. FACILITY REPORTS PT HAD X20 AVINASH REMOVED X2 DAYS AGO FROM BOWEL NEOPLASM REMOVAL SITE. UPON ARRIVAL TO ED PT NOTED TO BE A&OX3 AND COOPERATIVE. MINIMAL REDNESS NOTED TO INCISION SITE WITH STERI-STRIPS IN PLACE. DENIES PAIN. Source: patient, family, EMS, shelter records, caregiver Exam Limitations: no limitations History of Present Illness Date Seen by Provider: Jan 04, 2018 Time Seen by Provider: 05:01 Initial Comments This 82-year-old man presents to the emergency room from the shelter where they're having difficulty managing his surgical incision and colostomy due to his behaviors of pulling at and touching the operative site. He is exhibiting some wound dehiscence. 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 Staff at the shelter was concerned because in addition to disrupting the wound he is removing the colostomy bag. This has resulted in fecal material contaminating the wound site. Patient had avinash removed a couple days ago. He has a new resident to the shelter since yesterday. History was pieced together by EMS, shelter, and family. Patient cannot provide a comprehensible personal history. Allergies and Home Medications Allergies Coded Allergies: No Known Drug Allergies (Unverified , 10/19/17) Home Medications No Active Prescriptions or Reported Meds Patient Home Medication List Home Medication List Reviewed: Yes Review of Systems Review of Systems Constitutional: no symptoms reported EENTM: no symptoms reported Respiratory: no symptoms reported Cardiovascular: no symptoms reported Gastrointestinal: see HPI Genitourinary: no symptoms reported Musculoskeletal: no symptoms reported, joint pain Psychiatric/Neurological: See HPI (dementia) Endocrine: No Symptoms Reported Hematologic/Lymphatic: No Symptoms Reported Past Nbiksog-Bltfnq-Snerwh Hx Patient Social History Alcohol Use: Denies Use Recreational Drug Use: No Smoking Status: Former Smoker Type Used: Cigarettes Former Smoker, Quit: Feb 20, 1975 2nd Hand Smoke Exposure: No Recent Foreign Travel: No Contact w/Someone Who Travel: No Recent Infectious Disease Expo: No Recent Hopitalizations: No Seasonal Allergies Seasonal Allergies: No Past Medical History Surgeries: Yes Abdominal (bowel neoplasm resection) Respiratory: No Cardiac: No Neurological: Yes Dementia Genitourinary: No Gastrointestinal: Yes Chronic Diarrhea, Irritable Bowel Musculoskeletal: No Endocrine: No HEENT: No Cancer: Yes (bowel neoplasm) Skin Did You Recieve Any Treatments: Yes What Type of Treatment Did You: Radiation Psychosocial: No Integumentary: No Blood Disorders: No Adverse Reaction/Blood Tranf: No Family Medical History Colon cancer G8 BROTHER Myocardial infarction 19 FATHER Hypertension Physical Exam Vital Signs Vital Signs - First Documented 01/04/18 05:00 Temp 98.5 Pulse 67 Resp 16 B/P (MAP) 105/73 (84) Pulse Ox 95 O2 Delivery Room Air Capillary Refill : Less Than 3 Seconds General Appearance: WD/WN, no apparent distress HEENT: normal ENT inspection Cardiovascular: regular rate, rhythm, no edema, no murmur Respiratory: lungs clear, normal breath sounds, no respiratory distress, no accessory muscle use Gastrointestinal: normal bowel sounds, non tender, soft; No distended; other ( long of ventral abdominal incision with scattered areas of dehiscence. No area of dehiscence is greater than 1 cm in width. No suggestion of infection such as erythema, purulent drainage, or fluctuance.) Extremities: normal inspection Neurologic/Psychiatric: no motor/sensory deficits, alert, other (baseline deficits due to dementia) Skin: normal color, warm/dry, other (see above) Procedures/Interventions Other Closure Supply: Mastisol Progress/Results/Core Measures Results/Orders My Orders Orders - CALEB BUCKNER MD Lidocaine 1% Inj 20 Ml (Xylocaine 1% Inj (01/04/18 06:15) Vital Signs/I&O 01/04/18 01/04/18 05:00 09:00 Temp 98.5 Pulse 67 78 Resp 16 18 B/P (MAP) 105/73 (84) 102/60 (74) Pulse Ox 95 98 O2 Delivery Room Air Room Air Blood Pressure Mean: 84 Progress Progress Note : Progress Note I was able to contact to the patient's surgeon, Dr. Magallanes at [facility] in [place], [place]. He recommended washing the wound out thoroughly and applying some sutures to reinforce the incision in the areas of dehiscence after application of Betadine. The wounds were irrigated with normal saline and chlorhexidine. No visible debris was remaining within the wounds. Betadine was applied. 7 sutures of 4-0 Prolene were placed in the areas of weakness or dehiscence. Local anesthetic with one percent lidocaine was administered before sutures were placed. Steri-Strips were removed. Mastisol was applied and new Steri-Strips were placed between the sutures. Departure Impression Primary Impression: Wound dehiscence Disposition: 01 HOME, SELF-CARE Condition: Improved Departure-Patient Inst. Decision time for Depature: 06:57 Referrals: JAKE SIMS MD (PCP/Family) Primary Care Physician Patient Instructions: Wound Dehiscence Add. Discharge Instructions: Keep the wound clean and dry. Keep Steri-Strips on the skin to reinforce the incision. Leave the sutures in for at least one week. Contact Dr. Magallanes ( surgeon at [facility] in [place], [place]) for further instructions regarding removal of sutures and wound care. Return to care if there are worsening symptoms including signs of infection such as redness of the area, fever, puslike drainage, etc. All discharge instructions reviewed with patient and/or family. Voiced understanding. Scripts No Active Prescriptions or Reported Meds CALEB BUCKNER MD Jan 04, 2018 06:59
[2018-01-04 09:00] VITALS: BP 102/60
== END 2018-01-04 09:08 | disposition home or self-care (01) ==
LOC: EDUNIT# 04:59 → ER 05:01
DX: T81.31XA Disruption of external operation (surgical) wound, not elsewhere classified, initial encounter (principal); Z87.891 Personal history of nicotine dependence; Z87.19 Personal history of other diseases of the digestive system; Z85.828 Personal history of other malignant neoplasm of skin; Z80.0 Family history of malignant neoplasm of digestive organs; Z82.49 Family history of ischemic heart disease and other diseases of the circulatory system; Z93.3 Colostomy status